=== PATIENT | female | born 1965 | race Caucasian/White ===

== ENCOUNTER 2021-04-06 15:20 | Emergency (ER) | payer MEDICARE, MEDICAID ==
[~2021-04-06] VITALS: Ht 154.9 cm; Wt 167.7 kg
[~2021-04-06 15:20] MED LIST: AMLO5TAB PO; FERR142T14 PO; FLUT16SP10; FURO-149 PO; INDA2.5T5 PO; INSU100C10 SQ; LABE100T5 PO; LANTUS SUBCUT; LOSA50TA3 PO; POTA8TAB69 PO; WARF-113 PO
[2021-04-06 15:59] VITALS: BP 135/67
[2021-04-06 16:38] LABS: BASOPHILS % (AUTO) 0.3 % (0-1); EOSINOPHILS # (AUTO) 0.1 X10'3 (0-0.9); EOSINOPHILS % (AUTO) 1.9 % (0-6); HEMATOCRIT 36.7 % (35.0-45.0); HEMOGLOBIN 12.2 g/dl (12.0-16.0); LYMPHOCYTES % (AUTO) 14.1 % (21-51); MEAN CORPUSCULAR HEMOGLOBIN 25.2 PG (27.0-31.0); MEAN CORPUSCULAR HGB CONC 33.2 g/dL (33.0-36.5); MEAN PLATELET VOLUME 8.2 FL (7.4-10.4); MONOCYTES # (AUTO) 0.6 X10'3 (0-0.9); MONOCYTES % (AUTO) 8.3 % (2-12); NEUTROPHILS # (AUTO) 5.5 X10'3 (1.8-7.7); NEUTROPHILS % (AUTO) 75.4 % (42-75); PLATELET COUNT 246 X10'3 (140-440); RED BLOOD COUNT 4.83 X10'6 (4.20-5.60); RED CELL DISTRIBUTION WIDTH 17.6 % (11.5-14.5); WHITE BLOOD COUNT 7.3 X10'3 (4.5-11.0)
[2021-04-06 16:50] LABS: ALANINE AMINOTRANSFERASE 41 U/L (12-78); ALBUMIN 2.9 G/DL (3.4-5.0); ALBUMIN/GLOBULIN RATIO 0.6 (1.1-1.5); ALKALINE PHOSPHATASE 74 IU/L (46-116); ANION GAP 4 (8-16); ASPARTATE AMINO TRANSFERASE 19 U/L (10-37); BILIRUBIN,TOTAL 0.4 MG/DL (0.1-1.0); BLOOD UREA NITROGEN 10 MG/DL (7-18); BUN/CREATININE RATIO 15.2 (6.6-38.0); CALCIUM 9.6 MG/DL (8.5-10.1); CHLORIDE 98 MMOL/L (99-107); CREATININE 0.66 MG/DL (0.40-0.90); GLUCOSE 109 MG/DL (70-104); POTASSIUM 3.2 MMOL/L (3.5-5.1); SODIUM 136 MMOL/L (135-145); TOTAL CARBON DIOXIDE 33.7 MMOL/L (24-32); TOTAL PROTEIN 7.6 G/DL (6.4-8.2); eGFR > 90 ML/MIN
[2021-04-06] MEDS ORDERED: CEPH250T PO (17:53)
== END 2021-04-06 18:03 | disposition home or self-care (01) ==
LOC: ER 15:20
DX: L03.115 Cellulitis of right lower limb (principal); Z86.718 Personal history of other venous thrombosis and embolism; Z87.01 Personal history of pneumonia (recurrent); Z88.1 Allergy status to other antibiotic agents; Z88.5 Allergy status to narcotic agent; Z91.040 Latex allergy status; Z88.8 Allergy status to other drugs, medicaments and biological substances; Z79.2 Long term (current) use of antibiotics; Z79.4 Long term (current) use of insulin; Z79.899 Other long term (current) drug therapy
CPT/HCPCS: 36415; 80053; 85025; 85610; 93971; 99284

== ENCOUNTER 2023-11-18 10:49 | Outpatient (CLI) | payer MEDICARE, MEDICAID ==
[~2023-11-18 10:49] MED LIST changes: +AMLO10TA PO; -AMLO5TAB PO; +ASCO500C17 PO; +CANA300T PO; +DULA4.5P SQ; +FLUT15.87; -FLUT16SP10; -LABE100T5 PO; +LABE100T8 PO; +LOSA25TA41 PO; -LOSA50TA3 PO; +MAGN400C PO; +METF-900 PO; +MULT-1085 PO; +POTA-207 PO; -POTA8TAB69 PO; +SPIR25TA PO; +WARF6TAB49 PO
== END 2023-11-18 23:59 | disposition home or self-care (01) ==
LOC: CARD DIAG 10:49
PROVIDERS: ATTEND Internal Medicine Interventional Cardiology
DX: I08.8 Other rheumatic multiple valve diseases (principal); R09.89 Other specified symptoms and signs involving the circulatory and respiratory systems; R42 Dizziness and giddiness
CPT/HCPCS: 93880; C8929; 93306

== ENCOUNTER 2024-01-28 10:30 | Day surgery (SDC) | payer MEDICARE, MEDICAID ==
[2024-01-24 15:04] LABS: BASOPHILS % (AUTO) 0.4 % (0-1); EOSINOPHILS # (AUTO) 0.1 X10'3 (0-0.9); EOSINOPHILS % (AUTO) 1.6 % (0-6); HEMATOCRIT 39.5 % (35.0-45.0); HEMOGLOBIN 13.3 g/dl (12.0-16.0); LYMPHOCYTES # (AUTO) 1.4 X10'3 (1.1-4.8); LYMPHOCYTES % (AUTO) 18.7 % (21-51); MEAN CORPUSCULAR HEMOGLOBIN 28.4 PG (27.0-31.0); MEAN CORPUSCULAR HGB CONC 33.7 g/dL (33.0-36.5); MEAN PLATELET VOLUME 8.8 FL (7.4-10.4); MONOCYTES # (AUTO) 0.5 X10'3 (0-0.9); MONOCYTES % (AUTO) 6.7 % (2-12); NEUTROPHILS # (AUTO) 5.6 X10'3 (1.8-7.7); NEUTROPHILS % (AUTO) 72.6 % (42-75); PLATELET COUNT 209 X10'3 (140-440); RED CELL DISTRIBUTION WIDTH 15.6 % (11.5-14.5); WHITE BLOOD COUNT 7.7 X10'3 (4.5-11.0)
[2024-01-24 15:13] LABS: APTT 44 SECONDS (22-32); INR 2.2 INR; PROTHROMBIN TIME 21.4 SECONDS (9.0-12.0)
[2024-01-24 15:16] LABS: ALBUMIN 2.9 G/DL (3.4-5.0); ANION GAP 6 (8-16); BLOOD UREA NITROGEN 11 MG/DL (7-18); BUN/CREATININE RATIO 16.4 (10.0-20.0); CALCIUM 9.4 MG/DL (8.5-10.1); CHLORIDE 104 MMOL/L (99-107); CHOL/HDL RATIO 3.2 (0.00-4.99); CHOLESTEROL 132 MG/DL (0-200); CREATININE 0.67 MG/DL (0.40-0.90); GLUCOSE 105 MG/DL (70-104); HDL CHOLESTEROL 41 MG/DL (35-60); LDL CHOLESTEROL 72 MG/DL (50-100); POTASSIUM 3.8 MMOL/L (3.5-5.1); SODIUM 140 MMOL/L (135-145); TOTAL CARBON DIOXIDE 30.1 MMOL/L (24-32); TRIGLYCERIDES 99 MG/DL (20-135); eGFR > 90 ML/MIN
[2024-01-28] VITALS (11 sets, daily range): BP systolic 110–139; BP diastolic 55–87; PULSE 68–87; RESP 10–20; TEMP 97.6; O2SAT 92–99
[~2024-01-28] VITALS: Ht 154.9 cm; Wt 165.3 kg
[2024-01-28 11:47] LABS: APTT 28 SECONDS (22-32); PROTHROMBIN TIME 10.7 SECONDS (9.0-12.0)
[2024-01-28] MEDS: normal saline 1,000 ML IV SCH (12:12)
[2024-01-28] MEDS: LORazepam 0.5 MG tablet PO PRN (12:12)
[2024-01-28] MEDS: diphenhydrAMINE 25mg capsule PO PRN (12:12)
[2024-01-28] MEDS ORDERED: verapamil 2.5 mg/ml inj IV ONE (12:35)
[2024-01-28] MEDS ORDERED: heparin 1,000unit/ml 10ml vial 10 ML ONE (12:35)
[2024-01-28] MEDS ORDERED: LIDOcaine 1% (10mg/ml) 2ml vial ONE (12:35)
[2024-01-28] MEDS ORDERED: midazolam 1 mg/ML 2ml injection ONE (12:35)
[2024-01-28] MEDS ORDERED: fentaNYL/PF 50MCG/1 ML 2ML syringe ONE (12:35)
[2024-01-28] MEDS ORDERED: iohexol 350MG/ML 100ml bottle IV ONE (12:36)
[2024-01-28] MEDS ORDERED: nitroGLYCERIN 500mcg/5mL D5W 5 ML IV ONE (12:37)
[2024-01-28 14:07] LABS: ISTAT HGB ART 12.9 g/dl (12.0-16.0); ISTAT Hct ART 38 %PCV (35-45); ISTAT O2 SATURATION ARTERIAL 92 % (95-98); ISTAT SOURCE ART
[2024-01-28] MEDS ORDERED: HYDROcodone/acetaminophen 5mg/325mg tablet PO PRN (14:30)
[2024-01-28] MEDS ORDERED: HYDROcodone/acetaminophen 10/325mg tab PO PRN (14:30)
== END 2024-01-28 18:50 | disposition home or self-care (01) ==
LOC: SSTAY O 10:30
PROVIDERS: ATTEND Internal Medicine Interventional Cardiology
DX: I35.0 Nonrheumatic aortic (valve) stenosis (principal); R94.31 Abnormal electrocardiogram [ECG] [EKG]; I10 Essential (primary) hypertension; E11.42 Type 2 diabetes mellitus with diabetic polyneuropathy; E78.00 Pure hypercholesterolemia, unspecified; E66.9 Obesity, unspecified; J44.9 Chronic obstructive pulmonary disease, unspecified; G47.33 Obstructive sleep apnea (adult) (pediatric); Z79.01 Long term (current) use of anticoagulants; Z79.899 Other long term (current) drug therapy; Z68.44 Body mass index [BMI] 60.0-69.9, adult; Z88.1 Allergy status to other antibiotic agents; Z88.5 Allergy status to narcotic agent; Z91.040 Latex allergy status; Z88.8 Allergy status to other drugs, medicaments and biological substances
CPT/HCPCS: 36415; 80048; 80061; 82803; 82948; 85014; 85025; 85610; 85730; 93005; 93456; 99152; A6258; A6402; C1751; C1894; J1644; J2001; J2250; J3010; J3490; J7030; Q0163; Q9967; Z7610; A6449; C1769

== ENCOUNTER 2024-03-05 10:11 | Inpatient (IN) | payer MEDICARE, MEDICAID ==
[2024-03-02 14:14] LABS: BILIRUBIN,URINE NEGATIVE (Neg); CLARITY,URINE SLIGHTLY CLOUDY (Clear); COLOR,URINE YELLOW (Yellow); GLUCOSE, URINE >=1000 mg/dl (Neg); KETONES,URINE NEGATIVE (Neg); LEUKOCYTE ESTERASE ,URINE NEGATIVE (Neg); NITRITES, URINE NEGATIVE (Neg); OCCULT BLOOD,URINE NEGATIVE (Neg); PROTEIN,URINE NEGATIVE (Neg); UROBILINOGEN,URINE 0.2 E.U/dL (0.2-1.0)
[2024-03-02 14:17] LABS: BASOPHILS % (AUTO) 0.4 % (0-1); EOSINOPHILS # (AUTO) 0.1 X10'3 (0-0.9); EOSINOPHILS % (AUTO) 1.8 % (0-6); LYMPHOCYTES # (AUTO) 1.7 X10'3 (1.1-4.8); LYMPHOCYTES % (AUTO) 20.4 % (21-51); MEAN CORPUSCULAR HEMOGLOBIN 27.4 PG (27.0-31.0); MEAN CORPUSCULAR HGB CONC 32.7 g/dL (33.0-36.5); MEAN CORPUSCULAR VOLUME 83.7 FL (78-98); MEAN PLATELET VOLUME 8.4 FL (7.4-10.4); MONOCYTES # (AUTO) 0.6 X10'3 (0-0.9); MONOCYTES % (AUTO) 6.9 % (2-12); NEUTROPHILS # (AUTO) 5.7 X10'3 (1.8-7.7); NEUTROPHILS % (AUTO) 70.5 % (42-75); PRE OP HEMATOCRIT 41.8 % (35.0-45.0); PRE OP HEMOGLOBIN 13.7 g/dL (12.0-16.0); PRE OP PLATELET COUNT 215 X10'3 (140-440); PRE OP WHITE BLOOD COUNT 8.1 10'3 (4.8-10.8); RED CELL DISTRIBUTION WIDTH 15.7 % (11.5-14.5)
[2024-03-02 14:20] LABS: SQUAMOUS EPITHELIAL CELL,UR MODERATE /LPF (FEW); UA COLLECTION TYPE CLN CATCH MIDSTREAM
[2024-03-02 14:21] LABS: BACTERIA,URINE FEW /HPF (Neg); RBC,URINE 0-2 /HPF (0-2); WBC,URINE 0-4 /HPF (0-4)
[2024-03-02 14:27] LABS: HEMOGLOBIN A1C 6.3 % (4.5-6.2)
[2024-03-02 14:35] LABS: ALBUMIN 3.1 G/DL (3.4-5.0); ALBUMIN/GLOBULIN RATIO 0.7 (1.1-1.5); ALKALINE PHOSPHATASE 70 IU/L (46-116); BLOOD UREA NITROGEN 14 MG/DL (7-18); BUN/CREATININE RATIO 19.2 (10.0-20.0); CALCIUM 9.6 MG/DL (8.5-10.1); CHLORIDE 100 MMOL/L (99-107); CREATININE 0.73 MG/DL (0.40-0.90); PRE OP ALT 53 U/L (30-65); PRE OP ANION GAP 8 (8-16); PRE OP AST 18 U/L (10-37); PRE OP BILIRUB, TOTAL 0.4 MG/DL (0.0-1.0); PRE OP GLUCOSE 122 MG/DL (70-104); PRE OP SODIUM 139 MMOL/L (135-145); TOTAL PROTEIN 7.4 G/DL (6.4-8.2); eGFR 82 ML/MIN
[2024-03-02 14:36] LABS: PRE OP POTASSIUM 2.9 MMOL/L (3.4-5.1)
[2024-03-02 14:37] LABS: PRE OP PROTIME 18.6 SECONDS (9.0-12.0)
[2024-03-02 14:40] LABS: PRE OP INR 1.9 INR
[2024-03-03 11:04] LABS: ABG BASE EXCESS 3.4 mmol/L (-2.0-3.0); ABG HCO3 26.6 mmol/L (21.0-28.0); ABG OXYGEN SATURATION 98.1 % (94.0-98.0); ABG PCO2 (T) 35.8 mmHg (32.0-45.0); ABG PH (T) 7.489 (7.350-7.450); ABG PO2 (T) 99.4 mmHg (83.0-108.0); ALLEN'S TEST POSITIVE; FCOHb 0.6 % (0.5-1.5); FHHb 1.9 % (0.0-5.0); FLOW 0 L/min; FMetHb 0.3 % (0.0-1.5); FO2Hb 97.2 % (94.0-98.0); MODE ROOM AIR; TOTAL HEMOGLOBIN 14.2 G/dl (12.0-16.0)
[~2024-03-05] VITALS: Ht 154.9 cm; Wt 165.4 kg
[2024-03-05] VITALS (12 sets, daily range): BP systolic 101–171; BP diastolic 52–86; PULSE 62–112; RESP 13–20; TEMP 98.5; O2SAT 94–99
[2024-03-05] MEDS: Cefazolin 3 GM/100ML NS IVPB 100 ML IV ONE (05:30)
[2024-03-05] MEDS: DOCUMENT DATE & TIME OF BETA-BLOCKER PO ONE (05:30)
[~2024-03-05 10:11] MED LIST changes: -AMLO10TA PO; -ASCO500C17 PO; -CANA300T PO; +CYAN500T71 PO; +DAPA10TA PO; -DULA4.5P SQ; -FERR142T14 PO; -FLUT15.87; +FLUT1AER INH; -FURO-149 PO; +FURO40TA4 PO; +GLUC1TAB75 PO; -INSU100C10 SQ; +LORA10TA7 PO; -LOSA25TA41 PO; +LOSA50TA64 PO; -MULT-1085 PO; +NOVLG SQ; +ROSU20TA98 PO; -SPIR25TA PO; +TIRZ15PE; -WARF-113 PO; +WARF-55 PO; +dextrose 50%-water 50ml dispensing syringe IV PRN; +insulin glargine (Lantus) pen - multi-dose SQ PRN
[2024-03-05 11:14] LABS: PRE OP INR 1.1 INR; PRE OP PROTIME 11.4 SECONDS (9.0-12.0)
[2024-03-05] MEDS: famotidine 20mg tablet PO ONE (11:36)
[2024-03-05] MEDS: metoprolol tartrate 12.5mg (1/2 tablet) PO ONE (11:36)
[2024-03-05] MEDS: ringers solution, lacted 1,000 ML IV SCH (11:37)
[2024-03-05] MEDS: mupirocin 2% nasal ointment 1gm UD NS ONE (11:37)
[2024-03-05] MEDS: vancomycin 1,500 MG in NS 300ml IV soln IV ONE (11:38)
[2024-03-05] MEDS ORDERED: ceFAZolin 1000mg inj ONE (12:26)
[2024-03-05] MEDS ORDERED: epiNEPHrine 1 mg/ml inj ONE (12:26)
[2024-03-05] MEDS ORDERED: vancomycin 1,000mg inj ONE (12:26)
[2024-03-05] MEDS ORDERED: sevoflurane 250ml liquid IH ONE (14:52)
[2024-03-05] MEDS: LORazepam 2 mg/ml vial IV PRN (14:53)
[2024-03-05] MEDS ORDERED: MIDAZolam 1 MG/ML 5ML VIAL ONE (14:56)
[2024-03-05] MEDS ORDERED: SUfentanil 50mcg/ml 1ml amp IV ONE (14:56)
[2024-03-05] MEDS ORDERED: rocuronium 10mg/ml inj IV ONE ×2 (14:57)
[2024-03-05] MEDS ORDERED: propofol inj 20 ML IV ONE (15:00)
[2024-03-05] MEDS ORDERED: ePHEDrine 50MG/ML INJ. ONE (15:00)
[2024-03-05] MEDS: Insulin Reg/NS 100units/100mL 100 ML IV SCH ×2 (15:36→17:35)
[2024-03-05] MEDS: albuterol 2.5 MG/3 ML nebule NEB ONE (15:36)
[2024-03-05 15:38] LABS: ABG BASE EXCESS 1.6 mmol/L (-2.0-3.0); ABG OXYGEN SATURATION 96.9 % (94.0-98.0); ABG PCO2 45.7 mmHg (32.0-45.0); ABG PO2 89.9 mmHg (83.0-108.0); CL (ABG) 100 mmol/L (98-107); FCOHb 1.1 % (0.5-1.5); FHHb 3.1 % (0.0-5.0); FMetHb 0.3 % (0.0-1.5); FO2Hb 95.5 % (94.0-98.0); GLUCOSE (ABG) 119 mg/dl (65-95); IONIZED CA (ABG) 1.22 mmol/L (1.15-1.33); K (ABG) 3.5 mmol/L (3.40-4.50); TOTAL HEMOGLOBIN 13.7 G/dl (12.0-16.0)
[2024-03-05 15:46] LABS: ACT @ 1.70 U 292 SEC (193-297); ACT @ 2.84 U 402 SEC (260-420); BASELINE ACT 130 SEC (101-148)
[2024-03-05] MEDS: ceFAZolin 1000mg inj IR ONE (16:07)
[2024-03-05 16:24] LABS: ABG BASE EXCESS VENOUS 2.8 mmol/L (-2.0-3.0); ABG HCO3 VENOUS 28.8 mmol/L (22.0-29.0); ABG OXYGEN SATURATION VENOUS 78.3 % (60.0-85.0); ABG PCO2 VENOUS 50.7 mmHg (38.0-54.0); ABG PH (VENOUS) 7.372 (7.320-7.430); CL (ABG) 100 mmol/L (98-107); FCOHb VENOUS 0.8 % (0.5-1.5); FHHb VENOUS 21.5 %; FMetHb VENOUS 0.3 % (0.5-1.5); FO2Hb VENOUS 77.4 % (0-80.0); GLUCOSE (ABG) 136 mg/dl (65-95); IONIZED CA (ABG) 1.13 mmol/L (1.15-1.33); K (ABG) 4.2 mmol/L (3.40-4.50); TOTAL HEMOGLOBIN 11.1 G/dl (12.0-16.0)
[2024-03-05 16:28] LABS: ABG BASE EXCESS 1.5 mmol/L (-2.0-3.0); ABG HCO3 26.6 mmol/L (21.0-28.0); ABG OXYGEN SATURATION 99.9 % (94.0-98.0); ABG PCO2 43.8 mmHg (32.0-45.0); ABG PH 7.401 (7.350-7.450); ABG PO2 412.8 mmHg (83.0-108.0); CL (ABG) 101 mmol/L (98-107); FCOHb 0.8 % (0.5-1.5); FHHb 0.1 % (0.0-5.0); FMetHb 0.3 % (0.0-1.5); FO2Hb 98.8 % (94.0-98.0); GLUCOSE (ABG) 134 mg/dl (65-95); IONIZED CA (ABG) 1.13 mmol/L (1.15-1.33); K (ABG) 4.1 mmol/L (3.40-4.50); TOTAL HEMOGLOBIN 10.9 G/dl (12.0-16.0)
[2024-03-05 16:59] LABS: ABG BASE EXCESS 1.3 mmol/L (-2.0-3.0); ABG HCO3 26.4 mmol/L (21.0-28.0); ABG OXYGEN SATURATION 99.8 % (94.0-98.0); ABG PCO2 43.7 mmHg (32.0-45.0); ABG PH 7.399 (7.350-7.450); CL (ABG) 101 mmol/L (98-107); FCOHb 0.4 % (0.5-1.5); FHHb 0.2 % (0.0-5.0); FMetHb 0.3 % (0.0-1.5); FO2Hb 99.1 % (94.0-98.0); GLUCOSE (ABG) 155 mg/dl (65-95); IONIZED CA (ABG) 1.15 mmol/L (1.15-1.33); TOTAL HEMOGLOBIN 11.1 G/dl (12.0-16.0)
[2024-03-05 17:26] LABS: ABG BASE EXCESS VENOUS 2.6 mmol/L (-2.0-3.0); ABG HCO3 VENOUS 28.3 mmol/L (22.0-29.0); ABG PCO2 VENOUS 48.7 mmHg (38.0-54.0); ABG PH (VENOUS) 7.382 (7.320-7.430); ABG PO2 VENOUS 37.4 mmHg (23.0-48.0); CL (ABG) 102 mmol/L (98-107); FCOHb VENOUS 1.1 % (0.5-1.5); FHHb VENOUS 29.6 %; FMetHb VENOUS 0.3 % (0.5-1.5); GLUCOSE (ABG) 152 mg/dl (65-95); IONIZED CA (ABG) 1.21 mmol/L (1.15-1.33); K (ABG) 3.8 mmol/L (3.40-4.50); TOTAL HEMOGLOBIN 10.8 G/dl (12.0-16.0)
[2024-03-05 17:29] LABS: ACTIVATED CLOTTING TIME 115 SEC (101-148)
[2024-03-05] MEDS ORDERED: sodium phosphate inj. 30 MMOL in dextrose 5%-water 250 ML IV PRN (17:35)
[2024-03-05] MEDS ORDERED: acetaminophen 325mg tablet PO PRN (17:35)
[2024-03-05] MEDS ORDERED: dextrose 50%-water 50ml dispensing syringe IV PRN (17:35)
[2024-03-05] MEDS ORDERED: metoclopramide 5 mg/ml inj IV PRN (17:35)
[2024-03-05] MEDS ORDERED: Neutra Phos packet PO PRN (17:35)
[2024-03-05] MEDS ORDERED: nitroGLYCERIN-Tridil 50MG/D5W 250 ML IV PRN (17:35)
[2024-03-05] MEDS ORDERED: insulin glargine (Lantus) pen - multi-dose SQ PRN (17:35)
[2024-03-05] MEDS ORDERED: NORepinephrine 8mg/ 250ml NS 250 ML IV PRN (17:35)
[2024-03-05] MEDS ORDERED: mineral oil 133ml enema RC PRN (17:35)
[2024-03-05] MEDS ORDERED: magnesium sulf-water 4G/100mL 100 ML IV PRN (17:35)
[2024-03-05] MEDS ORDERED: bisacodyl 10mg suppository rectal RC PRN (17:35)
[2024-03-05] MEDS ORDERED: potassium Cl 40MEQ/1/2NS 520ml 520 ML IV PRN (17:35)
[2024-03-05] MEDS ORDERED: potassium CL 10mEq/100ml bag 100 ML IV PRN (17:35)
[2024-03-05] MEDS: sodium chloride 0.45% 1,000 ML IV SCH (17:59)
[2024-03-05 18:28] LABS: BASOPHILS % (AUTO) 0.2 % (0-1); EOSINOPHILS # (AUTO) 0.1 X10'3 (0-0.9); EOSINOPHILS % (AUTO) 0.4 % (0-6); HEMATOCRIT 40.1 % (35.0-45.0); HEMOGLOBIN 13.2 g/dl (12.0-16.0); LYMPHOCYTES # (AUTO) 1.9 X10'3 (1.1-4.8); LYMPHOCYTES % (AUTO) 12.8 % (21-51); MEAN CORPUSCULAR HEMOGLOBIN 27.7 PG (27.0-31.0); MEAN CORPUSCULAR VOLUME 83.9 FL (78-98); MEAN PLATELET VOLUME 8.8 FL (7.4-10.4); MONOCYTES # (AUTO) 0.6 X10'3 (0-0.9); MONOCYTES % (AUTO) 4.2 % (2-12); NEUTROPHILS # (AUTO) 12.1 X10'3 (1.8-7.7); NEUTROPHILS % (AUTO) 82.4 % (42-75); PLATELET COUNT 163 X10'3 (140-440); RED BLOOD COUNT 4.77 X10'6 (4.20-5.60); RED CELL DISTRIBUTION WIDTH 15.4 % (11.5-14.5); WHITE BLOOD COUNT 14.6 X10'3 (4.5-11.0)
[2024-03-05 18:32] LABS: ABG BASE EXCESS 1.8 mmol/L (-2.0-3.0); ABG HCO3 27.7 mmol/L (21.0-28.0); ABG OXYGEN SATURATION 97.6 % (94.0-98.0); ABG PCO2 (T) 47.1 mmHg (32.0-45.0); ABG PH (T) 7.385 (7.350-7.450); ABG PO2 (T) 94.6 mmHg (83.0-108.0); FCOHb 1.3 % (0.5-1.5); FHHb 2.4 % (0.0-5.0); FMetHb 0.3 % (0.0-1.5); MODE VENT - SIMV; PATIENT TEMPERATURE 36.4; PEEP 5 cm H2O; RESPIRATORY RATE 14 b/min; TIDAL VOLUME 600 mL; TOTAL HEMOGLOBIN 14.2 G/dl (12.0-16.0)
[2024-03-05 18:38] LABS: APTT 27 SECONDS (22-32); INR 1.2 INR; PROTHROMBIN TIME 12.5 SECONDS (9.0-12.0)
[2024-03-05 18:40] LABS: ALANINE AMINOTRANSFERASE 38 U/L (12-78); ALBUMIN 2.8 G/DL (3.4-5.0); ALBUMIN/GLOBULIN RATIO 0.9 (1.1-1.5); ALKALINE PHOSPHATASE 55 IU/L (46-116); ANION GAP 5 (8-16); ASPARTATE AMINO TRANSFERASE 31 U/L (10-37); BILIRUBIN,TOTAL 0.9 MG/DL (0.1-1.0); BLOOD UREA NITROGEN 8 MG/DL (7-18); BUN/CREATININE RATIO 11.9 (10.0-20.0); CALCIUM 8.8 MG/DL (8.5-10.1); CHLORIDE 104 MMOL/L (99-107); CREATININE 0.67 MG/DL (0.40-0.90); GLUCOSE 166 MG/DL (70-104); MAGNESIUM 2.5 MG/DL (1.5-2.4); PHOSPHORUS 2.6 MG/DL (2.3-4.5); SODIUM 138 MMOL/L (135-145); TOTAL CARBON DIOXIDE 28.9 MMOL/L (24-32); TOTAL PROTEIN 5.8 G/DL (6.4-8.2); eCRCL 70 ML/MIN; eGFR > 90 ML/MIN
[2024-03-05] MEDS: niCARDipine-NS 40mg/200ml IVPB 200 ML IV PRN (18:41)
[2024-03-05] MEDS: morphine 4 MG/ML inj SYRINge IV PRN (18:42)
[2024-03-05] MEDS: dexmedetomidin/NS 400mcg/100ml 100 ML IV PRN (18:56)
[2024-03-05 18:57] LABS: POTASSIUM 3.8 MMOL/L (3.5-5.1)
[2024-03-05] MEDS: potassium Cl 20mEq/100mL bag 100 ML IV PRN (19:12)
[2024-03-05] MEDS: albumin (Human) 5% 250ml 250 ML IV PRN (19:39)
[2024-03-05] MEDS: mupirocin 2% nasal ointment 1gm UD NS SCH (19:52)
[2024-03-05] MEDS: sennosides/docusate sodium tablet PO SCH (19:53)
[2024-03-05] MEDS: VANCOMYCIN 1GM 200ML H20 (PEG) 200 ML IV SCH (19:53)
[2024-03-05] MEDS: atorvastatin 10mg tablet PO SCH (19:53)
[2024-03-05 22:26] LABS: ABG BASE EXCESS -0.1 mmol/L (-2.0-3.0); ABG HCO3 25.3 mmol/L (21.0-28.0); ABG OXYGEN SATURATION 96.6 % (94.0-98.0); ABG PCO2 (T) 43.2 mmHg (32.0-45.0); ABG PH (T) 7.383 (7.350-7.450); ABG PO2 (T) 86.5 mmHg (83.0-108.0); FCOHb 1.7 % (0.5-1.5); FHHb 3.3 % (0.0-5.0); FMetHb 0.3 % (0.0-1.5); FO2Hb 94.7 % (94.0-98.0); MODE VENT - CPAP; PATIENT TEMPERATURE 36.7; TOTAL HEMOGLOBIN 14.2 G/dl (12.0-16.0)
[2024-03-05 23:19] LABS: BASOPHILS % (AUTO) 0.1 % (0-1); EOSINOPHILS % (AUTO) 0.1 % (0-6); HEMATOCRIT 39.5 % (35.0-45.0); LYMPHOCYTES # (AUTO) 0.7 X10'3 (1.1-4.8); LYMPHOCYTES % (AUTO) 5.8 % (21-51); MEAN CORPUSCULAR HEMOGLOBIN 27.6 PG (27.0-31.0); MEAN CORPUSCULAR VOLUME 83.8 FL (78-98); MEAN PLATELET VOLUME 8.5 FL (7.4-10.4); MONOCYTES # (AUTO) 0.3 X10'3 (0-0.9); MONOCYTES % (AUTO) 2.2 % (2-12); NEUTROPHILS # (AUTO) 10.7 X10'3 (1.8-7.7); NEUTROPHILS % (AUTO) 91.8 % (42-75); PLATELET COUNT 140 X10'3 (140-440); RED BLOOD COUNT 4.72 X10'6 (4.20-5.60); RED CELL DISTRIBUTION WIDTH 15.9 % (11.5-14.5); WHITE BLOOD COUNT 11.6 X10'3 (4.5-11.0)
[2024-03-05] MEDS: amiodarone 150mg/dext, iso-os 100 ML IV ONE (23:24)
[2024-03-05] MEDS: amiodarone/D5 360MG/200ML BAG 200 ML IV SCH (23:27)
[2024-03-05 23:32] LABS: ALBUMIN 3.4 G/DL (3.4-5.0); ANION GAP 5 (8-16); BLOOD UREA NITROGEN 11 MG/DL (7-18); BUN/CREATININE RATIO 14.3 (10.0-20.0); CALCIUM 9.3 MG/DL (8.5-10.1); CHLORIDE 106 MMOL/L (99-107); CREATININE 0.77 MG/DL (0.40-0.90); GLUCOSE 142 MG/DL (70-104); MAGNESIUM 2.4 MG/DL (1.5-2.4); PHOSPHORUS 2.1 MG/DL (2.3-4.5); POTASSIUM 3.8 MMOL/L (3.5-5.1); SODIUM 139 MMOL/L (135-145); TOTAL CARBON DIOXIDE 28.3 MMOL/L (24-32); eCRCL 61 ML/MIN; eGFR 77 ML/MIN
[2024-03-05] MEDS: magnesium sulf-water 2g/50mL 50 ML IV PRN (23:48)
[2024-03-05] MEDS: ceFAZolin/D5W- 1GM premix 50 ML IV SCH (23:49)
[2024-03-06] VITALS (26 sets, daily range): BP systolic 95–124; BP diastolic 37–62; PULSE 61–94; RESP 8–22; O2SAT 90–98
[2024-03-06] MEDS: ondansetron/PF 4mg/2ml inj IV PRN (00:17)
[2024-03-06] MEDS: albumin (Human) 5% 250ml 250 ML IV ONE (00:17)
[2024-03-06] MEDS: HYDROcodone/acetaminophen 10/325mg tab PO PRN (00:18)
[2024-03-06] MEDS: sodium phosphate inj. 15 MMOL in dextrose 5%-water 250 ML IV PRN (00:50)
[2024-03-06] MEDS: potassium Cl 40MEQ/270ML bag 250 ML IV PRN (00:50)
[2024-03-06] MEDS: morphine 2 MG/ML inj. syringe IV PRN (00:58)
[2024-03-06] MEDS: COMMUNICATION ORDER 1 EA MISC MC ONE ×2 (02:48→03:44)
[2024-03-06 04:03] LABS: BASOPHILS % (AUTO) 0 % (0-1); EOSINOPHILS % (AUTO) 0 % (0-6); HEMATOCRIT 37.4 % (35.0-45.0); HEMOGLOBIN 12.3 g/dl (12.0-16.0); LYMPHOCYTES # (AUTO) 0.5 X10'3 (1.1-4.8); LYMPHOCYTES % (AUTO) 4.8 % (21-51); MEAN CORPUSCULAR HGB CONC 32.9 g/dL (33.0-36.5); MONOCYTES # (AUTO) 0.1 X10'3 (0-0.9); MONOCYTES % (AUTO) 1.4 % (2-12); NEUTROPHILS % (AUTO) 93.8 % (42-75); PLATELET COUNT 137 X10'3 (140-440); WHITE BLOOD COUNT 9.6 X10'3 (4.5-11.0)
[2024-03-06 04:29] LABS: ALANINE AMINOTRANSFERASE 39 U/L (12-78); ALBUMIN 3.4 G/DL (3.4-5.0); ALBUMIN/GLOBULIN RATIO 1.3 (1.1-1.5); ALKALINE PHOSPHATASE 43 IU/L (46-116); ANION GAP 6 (8-16); ASPARTATE AMINO TRANSFERASE 29 U/L (10-37); BILIRUBIN,TOTAL 0.7 MG/DL (0.1-1.0); BLOOD UREA NITROGEN 13 MG/DL (7-18); BUN/CREATININE RATIO 17.3 (10.0-20.0); CHLORIDE 106 MMOL/L (99-107); CREATININE 0.75 MG/DL (0.40-0.90); GLUCOSE 163 MG/DL (70-104); MAGNESIUM 2.8 MG/DL (1.5-2.4); PHOSPHORUS 3.7 MG/DL (2.3-4.5); SODIUM 138 MMOL/L (135-145); TOTAL CARBON DIOXIDE 26.5 MMOL/L (24-32); eCRCL 62 ML/MIN; eGFR 80 ML/MIN
[2024-03-06] MEDS: potassium Cl 40MEQ/270ML bag 270 ML IV PRN (04:58)
[2024-03-06] MEDS: cyanocobalamin 500mcg tablet PO SCH (07:50)
[2024-03-06] MEDS: loratadine 10mg tablet PO SCH (07:50)
[2024-03-06] MEDS: aspirin 81mg tab.chew PO SCH (07:51)
[2024-03-06] MEDS: metoprolol tartrate 12.5mg (1/2 tablet) PO SCH (07:53)
[2024-03-06] MEDS ORDERED: DEXTROSE 15 GM of carb/4 tabs (each vial/BOTTLE has 4 tablets) PO PRN ×2 (09:40)
[2024-03-06] MEDS ORDERED: glucagon, human recombinant 1mg kit SUBCUT PRN (09:40)
[2024-03-06] MEDS ORDERED: dextrose 50%-water 50ml dispensing syringe IV PRN ×2 (09:40)
[2024-03-06] MEDS: INSULIN LISPRO 100 UNIT/ML INSULN.PEN MULTI-DOSE SQ SCH (12:26)
[2024-03-06] MEDS: insulin glargine (Lantus) pen - multi-dose SQ SCH (20:34)
[2024-03-06] MEDS ORDERED: insulin glargine (Lantus) pen - multi-dose SQ SCH (21:00)
[2024-03-07] VITALS (26 sets, daily range): BP systolic 103–133; BP diastolic 40–59; PULSE 60–83; RESP 10–21; O2SAT 90–99
[2024-03-07 03:35] LABS: BASOPHILS # (AUTO) 0.1 X10'3 (0-0.2); BASOPHILS % (AUTO) 0.3 % (0-1); EOSINOPHILS % (AUTO) 0 % (0-6); HEMATOCRIT 36.1 % (35.0-45.0); HEMOGLOBIN 11.7 g/dl (12.0-16.0); LYMPHOCYTES % (AUTO) 5.5 % (21-51); MEAN CORPUSCULAR HEMOGLOBIN 27.4 PG (27.0-31.0); MEAN CORPUSCULAR HGB CONC 32.4 g/dL (33.0-36.5); MEAN CORPUSCULAR VOLUME 84.7 FL (78-98); MEAN PLATELET VOLUME 9.1 FL (7.4-10.4); MONOCYTES # (AUTO) 1.4 X10'3 (0-0.9); MONOCYTES % (AUTO) 7.8 % (2-12); NEUTROPHILS # (AUTO) 15.5 X10'3 (1.8-7.7); NEUTROPHILS % (AUTO) 86.4 % (42-75); PLATELET COUNT 152 X10'3 (140-440); RED BLOOD COUNT 4.26 X10'6 (4.20-5.60); RED CELL DISTRIBUTION WIDTH 15.6 % (11.5-14.5)
[2024-03-07 03:49] LABS: ANION GAP 3 (8-16); BLOOD UREA NITROGEN 16 MG/DL (7-18); CALCIUM 8.8 MG/DL (8.5-10.1); CHLORIDE 102 MMOL/L (99-107); CREATININE 0.84 MG/DL (0.40-0.90); GLUCOSE 230 MG/DL (70-104); POTASSIUM 4.3 MMOL/L (3.5-5.1); SODIUM 134 MMOL/L (135-145); TOTAL CARBON DIOXIDE 29.1 MMOL/L (24-32); eCRCL 56 ML/MIN; eGFR 70 ML/MIN
[2024-03-07] MEDS: pantoprazole 40mg Tablet.DR PO SCH (09:05)
[2024-03-07] MEDS ORDERED: furosemide 40mg/4ml inj IV ONE (10:20)
[2024-03-07] MEDS: furosemide 40mg/4ml inj IV ONE (13:08)
[2024-03-07] MEDS ORDERED: heparin, porcine 5000 units/ml vial SQ SCH (20:00)
[2024-03-07] MEDS: warfarin 5mg tablet PO ONE (20:44)
[2024-03-07] MEDS: heparin, porcine 5000 units/ml vial SQ SCH (20:45)
[2024-03-07] MEDS ORDERED: warfarin 5mg tablet PO ONE (21:00)
[2024-03-08] VITALS (23 sets, daily range): BP systolic 93–123; BP diastolic 45–65; PULSE 73–127; RESP 10–22; TEMP 98–98.3; O2SAT 91–96
[2024-03-08 03:59] LABS: BASOPHILS % (AUTO) 0.4 % (0-1); EOSINOPHILS % (AUTO) 0.3 % (0-6); HEMATOCRIT 34.4 % (35.0-45.0); HEMOGLOBIN 11.4 g/dl (12.0-16.0); LYMPHOCYTES # (AUTO) 1.9 X10'3 (1.1-4.8); LYMPHOCYTES % (AUTO) 19.6 % (21-51); MEAN CORPUSCULAR HEMOGLOBIN 28.2 PG (27.0-31.0); MEAN CORPUSCULAR HGB CONC 33.2 g/dL (33.0-36.5); MEAN CORPUSCULAR VOLUME 84.8 FL (78-98); MEAN PLATELET VOLUME 9.4 FL (7.4-10.4); MONOCYTES # (AUTO) 1.1 X10'3 (0-0.9); MONOCYTES % (AUTO) 11.1 % (2-12); NEUTROPHILS # (AUTO) 6.8 X10'3 (1.8-7.7); NEUTROPHILS % (AUTO) 68.6 % (42-75); PLATELET COUNT 142 X10'3 (140-440); RED BLOOD COUNT 4.05 X10'6 (4.20-5.60); RED CELL DISTRIBUTION WIDTH 16.1 % (11.5-14.5); WHITE BLOOD COUNT 9.9 X10'3 (4.5-11.0)
[2024-03-08 04:13] LABS: ALBUMIN 2.8 G/DL (3.4-5.0); ANION GAP 0 (8-16); BLOOD UREA NITROGEN 17 MG/DL (7-18); BUN/CREATININE RATIO 23.6 (10.0-20.0); CALCIUM 8.4 MG/DL (8.5-10.1); CHLORIDE 102 MMOL/L (99-107); CREATININE 0.72 MG/DL (0.40-0.90); GLUCOSE 141 MG/DL (70-104); POTASSIUM 3.5 MMOL/L (3.5-5.1); SODIUM 136 MMOL/L (135-145); TOTAL CARBON DIOXIDE 33.6 MMOL/L (24-32); eCRCL 65 ML/MIN; eGFR 83 ML/MIN
[2024-03-08] MEDS: potassium Cl 20 mEq SR tablet PO PRN ×2 (05:13→08:49)
[2024-03-08] MEDS ORDERED: magnesium sulf-water 2g/50mL 50 ML IV PRN (08:15)
[2024-03-08] MEDS ORDERED: potassium Cl 20 mEq SR tablet PO PRN (08:15)
[2024-03-08] MEDS ORDERED: potassium Cl 40MEQ/270ML bag 250 ML IV PRN (08:15)
[2024-03-08] MEDS ORDERED: potassium CL 10mEq/100ml bag 100 ML IV PRN (08:15)
[2024-03-08] MEDS ORDERED: potassium Cl 20mEq/100mL bag 100 ML IV PRN (08:15)
[2024-03-08] MEDS ORDERED: potassium Cl 40MEQ/1/2NS 520ml 520 ML IV PRN (08:15)
[2024-03-08 08:39] LABS: MAGNESIUM 2.1 MG/DL (1.5-2.4)
[2024-03-08] MEDS: furosemide 40mg/4ml inj IV ONE (08:52)
[2024-03-08] MEDS: ketorolac trometh 15mg/ml vial 15 MG/ML ML IV SCH (13:13)
[2024-03-08] MEDS: amiodarone 150mg/dext, iso-os 100 ML IV ONE (17:49)
[2024-03-08] MEDS: amiodarone/D5 360MG/200ML BAG 200 ML IV SCH ×2 (18:11→23:30)
[2024-03-08] MEDS: magnesium Cl slow-release 64mg tablet PO SCH (21:00)
[2024-03-08] MEDS: warfarin 5mg tablet PO ONE (21:00)
[2024-03-09] VITALS (14 sets, daily range): BP systolic 97–121; BP diastolic 44–65; PULSE 76–131; RESP 10–22; TEMP 97.3–98.5; O2SAT 92–100
[2024-03-09] MEDS: magnesium hydroxide 30ml (MOM) UD suspension PO PRN (05:55)
[2024-03-09 07:36] LABS: BASOPHILS % (AUTO) 0.2 % (0-1); EOSINOPHILS # (AUTO) 0.1 X10'3 (0-0.9); EOSINOPHILS % (AUTO) 1.5 % (0-6); HEMATOCRIT 34.9 % (35.0-45.0); HEMOGLOBIN 11.7 g/dl (12.0-16.0); LYMPHOCYTES # (AUTO) 1.5 X10'3 (1.1-4.8); LYMPHOCYTES % (AUTO) 15.5 % (21-51); MEAN CORPUSCULAR HEMOGLOBIN 28.4 PG (27.0-31.0); MEAN CORPUSCULAR HGB CONC 33.6 g/dL (33.0-36.5); MEAN CORPUSCULAR VOLUME 84.4 FL (78-98); MEAN PLATELET VOLUME 9.3 FL (7.4-10.4); MONOCYTES # (AUTO) 0.7 X10'3 (0-0.9); MONOCYTES % (AUTO) 7.6 % (2-12); NEUTROPHILS # (AUTO) 7.3 X10'3 (1.8-7.7); NEUTROPHILS % (AUTO) 75.2 % (42-75); PLATELET COUNT 154 X10'3 (140-440); RED BLOOD COUNT 4.13 X10'6 (4.20-5.60); WHITE BLOOD COUNT 9.8 X10'3 (4.5-11.0)
[2024-03-09 07:39] LABS: ALBUMIN 2.6 G/DL (3.4-5.0); ANION GAP 4 (8-16); BLOOD UREA NITROGEN 20 MG/DL (7-18); CALCIUM 8.6 MG/DL (8.5-10.1); CHLORIDE 99 MMOL/L (99-107); GLUCOSE 151 MG/DL (70-104); POTASSIUM 3.2 MMOL/L (3.5-5.1); SODIUM 136 MMOL/L (135-145); TOTAL CARBON DIOXIDE 33.5 MMOL/L (24-32); eCRCL 59 ML/MIN; eGFR 74 ML/MIN
[2024-03-09] MEDS: magnesium citrate 296ml oral solution PO ONE (08:30)
[2024-03-09] MEDS: amiodarone 200mg tablet PO SCH (08:35)
[2024-03-09] MEDS: magnesium sulf-water 4G/100mL 100 ML IV PRN (09:35)
[2024-03-09 13:55] LABS: ABG PO2 388.3 mmHg (83.0-108.0)
[2024-03-09 14:30] LABS: PROTHROMBIN TIME 10.9 SECONDS (9.0-12.0)
[2024-03-09] MEDS: warfarin 5mg tablet PO ONE (21:48)
[2024-03-09] MEDS: HYDROcodone/acetaminophen 10/325mg tab PO PRN (21:50)
[2024-03-10] VITALS (12 sets, daily range): BP systolic 104–139; BP diastolic 47–86; PULSE 68–115; RESP 13–24; TEMP 97–98.2; O2SAT 84–99
[2024-03-10 07:33] LABS: INR 1.1 INR; PROTHROMBIN TIME 11.2 SECONDS (9.0-12.0)
[2024-03-10 08:02] LABS: CHLORIDE 100 MMOL/L (99-107); SODIUM 136 MMOL/L (135-145)
[2024-03-10 08:14] LABS: BASOPHILS % (AUTO) 0.2 % (0-1); EOSINOPHILS # (AUTO) 0.2 X10'3 (0-0.9); EOSINOPHILS % (AUTO) 2.8 % (0-6); HEMATOCRIT 32.3 % (35.0-45.0); HEMOGLOBIN 11.1 g/dl (12.0-16.0); LYMPHOCYTES # (AUTO) 1.5 X10'3 (1.1-4.8); LYMPHOCYTES % (AUTO) 18.2 % (21-51); MEAN CORPUSCULAR HEMOGLOBIN 28.7 PG (27.0-31.0); MEAN CORPUSCULAR HGB CONC 34.2 g/dL (33.0-36.5); MEAN CORPUSCULAR VOLUME 83.9 FL (78-98); MEAN PLATELET VOLUME 9.4 FL (7.4-10.4); MONOCYTES # (AUTO) 0.6 X10'3 (0-0.9); MONOCYTES % (AUTO) 7.1 % (2-12); NEUTROPHILS % (AUTO) 71.7 % (42-75); PLATELET COUNT 165 X10'3 (140-440); RED BLOOD COUNT 3.86 X10'6 (4.20-5.60); RED CELL DISTRIBUTION WIDTH 15.5 % (11.5-14.5); WHITE BLOOD COUNT 8.3 X10'3 (4.5-11.0)
[2024-03-10 08:43] LABS: ALBUMIN 2.4 G/DL (3.4-5.0); ANION GAP 7 (8-16); BLOOD UREA NITROGEN 10 MG/DL (7-18); BUN/CREATININE RATIO 15.4 (10.0-20.0); CALCIUM 8.4 MG/DL (8.5-10.1); CREATININE 0.65 MG/DL (0.40-0.90); GLUCOSE 149 MG/DL (70-104); POTASSIUM 3.3 MMOL/L (3.5-5.1); eCRCL 72 ML/MIN; eGFR > 90 ML/MIN
[2024-03-10 08:56] LABS: MAGNESIUM 2.3 MG/DL (1.5-2.4)
[2024-03-10] MEDS: acetaminophen 325mg tablet PO PRN (13:39)
[2024-03-10] MEDS: warfarin 2.5mg tablet PO ONE (20:15)
[2024-03-11] VITALS (9 sets, daily range): BP systolic 104–119; BP diastolic 51–72; PULSE 74–115; RESP 12–16; TEMP 97.8–98.3; O2SAT 95–99
[2024-03-11 07:28] LABS: INR 1.2 INR; PROTHROMBIN TIME 12.2 SECONDS (9.0-12.0)
[2024-03-11 07:40] LABS: ALBUMIN 2.5 G/DL (3.4-5.0); ANION GAP 3 (8-16); BLOOD UREA NITROGEN 10 MG/DL (7-18); BUN/CREATININE RATIO 14.7 (10.0-20.0); CALCIUM 8.8 MG/DL (8.5-10.1); CHLORIDE 101 MMOL/L (99-107); CREATININE 0.68 MG/DL (0.40-0.90); GLUCOSE 126 MG/DL (70-104); MAGNESIUM 2.1 MG/DL (1.5-2.4); POTASSIUM 3.7 MMOL/L (3.5-5.1); SODIUM 136 MMOL/L (135-145); TOTAL CARBON DIOXIDE 32.2 MMOL/L (24-32); eCRCL 69 ML/MIN; eGFR 89 ML/MIN
[2024-03-11 07:45] LABS: BASOPHILS % (AUTO) 0.2 % (0-1); EOSINOPHILS # (AUTO) 0.3 X10'3 (0-0.9); EOSINOPHILS % (AUTO) 4.2 % (0-6); HEMATOCRIT 32.3 % (35.0-45.0); HEMOGLOBIN 10.9 g/dl (12.0-16.0); LYMPHOCYTES # (AUTO) 1.3 X10'3 (1.1-4.8); LYMPHOCYTES % (AUTO) 16.8 % (21-51); MEAN CORPUSCULAR HEMOGLOBIN 28.5 PG (27.0-31.0); MEAN CORPUSCULAR HGB CONC 33.9 g/dL (33.0-36.5); MEAN CORPUSCULAR VOLUME 84.2 FL (78-98); MONOCYTES # (AUTO) 0.6 X10'3 (0-0.9); MONOCYTES % (AUTO) 8.1 % (2-12); NEUTROPHILS # (AUTO) 5.5 X10'3 (1.8-7.7); NEUTROPHILS % (AUTO) 70.7 % (42-75); PLATELET COUNT 181 X10'3 (140-440); RED BLOOD COUNT 3.83 X10'6 (4.20-5.60); RED CELL DISTRIBUTION WIDTH 15.9 % (11.5-14.5); WHITE BLOOD COUNT 7.7 X10'3 (4.5-11.0)
[2024-03-11] MEDS ORDERED: warfarin 2.5mg tablet PO ONE (21:00)
[2024-03-11] MEDS ORDERED: warfarin 5mg tablet PO ONE (21:00)
== END 2024-03-11 14:40 | DRG 220 ==
LOC: PAS IN 10:11 → CICU 2S 16:35 → PCU 3S 03-08 16:10
PROVIDERS: ADMIT Thoracic Surgery (Cardiothoracic Vascular Surgery); ATTEND Thoracic Surgery (Cardiothoracic Vascular Surgery)
PROC: 02RF0JZ Replacement of Aortic Valve with Synthetic Substitute, Open Approach (ICD-10-PCS; 2024-03-05)
PROC: 5A1221Z Performance of Cardiac Output, Continuous (ICD-10-PCS; 2024-03-05)
PROC: 5A09357 Assistance with Respiratory Ventilation, Less than 24 Consecutive Hours, Continuous Positive Airway Pressure (ICD-10-PCS; 2024-03-05)
PROC: B24BZZ4 Ultrasonography of Heart with Aorta, Transesophageal (ICD-10-PCS; 2024-03-05)
PROC: 02L70CK Occlusion of Left Atrial Appendage with Extraluminal Device, Open Approach (ICD-10-PCS; principal; 2024-03-05 14:52)
PROC: 5A09357 Assistance with Respiratory Ventilation, Less than 24 Consecutive Hours, Continuous Positive Airway Pressure (ICD-10-PCS; 2024-03-07)
PROC: 5A09357 Assistance with Respiratory Ventilation, Less than 24 Consecutive Hours, Continuous Positive Airway Pressure (ICD-10-PCS; 2024-03-08)
PROC: 5A09357 Assistance with Respiratory Ventilation, Less than 24 Consecutive Hours, Continuous Positive Airway Pressure (ICD-10-PCS; 2024-03-08)
PROC: 5A09357 Assistance with Respiratory Ventilation, Less than 24 Consecutive Hours, Continuous Positive Airway Pressure (ICD-10-PCS; 2024-03-10)
DX: I35.0 Nonrheumatic aortic (valve) stenosis (principal); Z00.6 Encounter for examination for normal comparison and control in clinical research program; D68.51 Activated protein C resistance; Z68.44 Body mass index [BMI] 60.0-69.9, adult; I48.0 Paroxysmal atrial fibrillation; E11.9 Type 2 diabetes mellitus without complications; E78.5 Hyperlipidemia, unspecified; G47.33 Obstructive sleep apnea (adult) (pediatric); I10 Essential (primary) hypertension; E66.9 Obesity, unspecified; Z79.899 Other long term (current) drug therapy
CPT/HCPCS: 36415; 36600; 71045; 71046; 76376; 80048; 80053; 81001; 82330; 82435; 82803; 82947; 82948; 83036; 83735; 84100; 84132; 84295; 85018; 85025; 85347; 85610; 85730; 86885; 86900; 86901; 86920; 87070; 87081; 88300; 93005; 93312; 93325; 93970; 94002; 94010; 94640; 94668; 94760; 97110; 97116; 97161; 97530; 97535; A4333; A4615; A4618; A6213; A6258; A6449; A7000; A7048; C1751; G0378; J0171; J0282; J0690; J1644; J1815; J1885; J1940; J2060; J2250; J2270; J2405; J2704; J2720; J3370; J3372; J3475; J3480; J3490; J7030; J7040; J7050; J7060; J7120; P9045